=== PATIENT | female | born 1945 | race Two or more races ===

== ENCOUNTER 2023-04-23 09:50 | Day surgery (SDC) | payer MEDICARE, BC ==
[2023-04-19 13:12] LABS: Basophils # (auto) 0.1 10 ^3/uL (0-0.2); Basophils % (auto) 0.8 % (0.0-2.0); Eosinophils # (auto) 0.2 10 ^3/uL (0-0.8); Eosinophils % (auto) 2.4 % (0.0-7.0); Hematocrit 39.3 % (36.0-46.0); Hemoglobin 13.4 g/dL (12.2-16.2); Lymphocytes # (auto) 2.2 10 ^3/uL (0.4-5.4); Lymphocytes % (auto) 22.1 % (10.0-50.0); Mean Corpuscular Hemoglobin 31.4 pg (28.0-32.0); Mean Corpuscular Hgb Conc. 34.2 g/dL (32.0-36.0); Mean Corpuscular Volume 91.9 fL (80.0-100.0); Monocytes # (auto) 0.6 10 ^3/uL (0-1.3); Monocytes % (auto) 6.2 % (0.0-12.0); Neutrophils # (auto) 6.7 10 ^3/uL (1.6-8.6); Neutrophils % (auto) 68.5 % (37.0-80.0); Red Blood Cells 4.27 10^6/uL (4.0-5.20); Red Cell Distribution Width 13.5 % (11.8-14.3); White Blood Cell 9.8 10^3/uL (4.4-10.8)
[2023-04-19 13:23] LABS: INR 1.02 (0.9-1.15); Partial Thromboplastin Time 27.8 SEC (24.5-34.5); Prothrombin Time 10.7 sec (9.3-11.8)
[2023-04-19 13:44] LABS: Alanine Aminotransferase 17 U/L (7-40); Alkaline Phosphatase 51 U/L (46-116); Anion Gap 7 (5-15); BUN/Creatinine Ratio 16.7 (10.0-20.0); Blood Urea Nitrogen 16 mg/dL (9-23); Calcium 9.7 mg/dL (8.5-10.1); Carbon Dioxide 28 mmol/L (20-30); Chloride 105 mmol/L (98-107); Glucose 117 mg/dL (74-106); Potassium 3.9 mmol/L (3.5-5.1); Sodium 140 mmol/L (136-145)
[2023-04-19 13:46] LABS: Albumin 4.7 g/dL (3.2-4.8); Aspartate Aminotransferase 16 U/L (13-40); Bilirubin, Total 0.4 mg/dL (0.2-1.0); Total Protein 7.5 g/dL (5.7-8.2)
[~2023-04-23] VITALS: Ht 165.1 cm; Wt 106.6 kg
[~2023-04-23 09:50] MED LIST: ALBUAER3 IN; AMLO5CAP2 PO; ASCO10003 PO; BISO1TAB17 PO; CHOL1CAP47 PO; GLIM-38 PO; LEVO500T91 PO; PANT40T PO; ROSU1TAB12 PO; SITA50TA28 PO; ZINC220T6 PO; ZOFR4T PO
[2023-04-23] MEDS ORDERED: SODIUM CHLORIDE LOCK 10 ML ONE (11:31)
[2023-04-23] MEDS ORDERED: MIDAZOLAM HCL 5 MG/ML-1ML VIAL ONE (11:31)
[2023-04-23] MEDS ORDERED: diphenhdrAMINE HCL 50 MG/1 ML VL ONE (11:31)
[2023-04-23] MEDS ORDERED: fentaNYL CITRATE 100 MCG/2 ML VL ONE (11:32)
[2023-04-23 11:45] VITALS: O2SAT 96
[2023-04-23 12:15] VITALS: TEMP 98.2; O2SAT 97
[2023-04-23 13:00] VITALS: BP 120/64; PULSE 78; RESP 18; O2SAT 95
== END 2023-04-23 13:07 | disposition home or self-care (01) ==
LOC: GI 09:50
PROVIDERS: ATTEND Internal Medicine Gastroenterology
DX: Z12.11 Encounter for screening for malignant neoplasm of colon (principal); K63.5 Polyp of colon; K63.89 Other specified diseases of intestine; K64.0 First degree hemorrhoids; K57.30 Diverticulosis of large intestine without perforation or abscess without bleeding; E11.9 Type 2 diabetes mellitus without complications; I10 Essential (primary) hypertension; Z79.899 Other long term (current) drug therapy
CPT/HCPCS: 36415; 45385; 80053; 82962; 85025; 85610; 85730; 88305; J1200; J2250; J3010; J7030; 99152; 99153